=== PATIENT | male | born 1945 | race Caucasian/White ===

== ENCOUNTER 2016-08-31 20:56 | Observation (INO) ==
--- NOTE | 2016-08-31 21:26 | Emergency Department Note ---
Disposition Clinical Impression: Influenza A Dyspnea Qualifiers: Dyspnea type: shortness of breath Qualified Code(s): R06.02 - Shortness of breath Disposition: Admitted As Inpatient Condition: Fair General Adult HPI - General Chief complaint: ED General Medical Stated complaint: Flu-like symptoms Nursing Notes Reviewed: Yes Vital Signs Reviewed: Yes - History of Present Illness HPI Narrative: 3 week history of cough and shortness of breath and flu like illness. Daughter states his illnesses has been present About 1 week and she states he has congestive heart failure ,COPD and heart disease. Onset (ago): week(s) Pain Scale: 0 - Related Data Home Medications Medication Instructions Recorded Confirmed Unable To Obtain [Unable to Obtain] 08/31/16 08/31/16 Allergies Allergy/AdvReac Type Severity Reaction Status Date / Time No Known Allergies Allergy Verified 08/31/16 21:00 All systems ED: reviewed and negative except as stated. Physical Exam - General Limitations: no limitations General appearance: alert, in no apparent distress - Head Head exam: atraumatic - Eye Eye exam: Present: normal appearance - ENT ENT exam: normal exam - Neck Neck exam: Present: normal inspection - Chest Chest inspection: Present: normal inspection - Respiratory Respiratory exam: Present: wheezes - Cardiovascular Cardiovascular exam: Present: tachycardia - Abdominal Exam Abdominal exam: Present: soft - Extremities Exam Extremities exam: Present: normal inspection - Expanded Lower Extremity Exam Gait: not tested/not observed - Back Exam Back exam: Present: normal inspection - Neurological Exam Neurological exam: Present: alert, oriented X3, CN II-XII intact - Psychiatric Psychiatric exam: Present: normal affect - Skin Skin exam: Present: warm, dry Course Vital Signs Temperature 99.8 F H 08/31/16 21:01 Pulse Rate 120 08/31/16 21:01 Respiratory Rate 24 08/31/16 21:01 Blood Pressure 140/75 08/31/16 21:01 O2 Sat by Pulse Oximetry 86 L 08/31/16 21:01 Temperature 99.8 F H 08/31/16 21:07 Pulse Rate 116 08/31/16 22:19 Respiratory Rate 22 08/31/16 22:42 Blood Pressure 137/73 08/31/16 22:42 O2 Sat by Pulse Oximetry 91 L 08/31/16 22:19 Oxygen Delivery Oxygen Delivery Nasal Cannula Medical Decision Making - [facility] Narrative Medical decision making narrative: Differential: Respiratory failure versus COPD versus pneumonia versus influenza - Lab Data Lab results reviewed: Yes I reviewed the patient's lab results. Result diagrams: 08/31/16 21:31 08/31/16 21:31 Lab Results 08/31/16 08/31/16 08/31/16 Range/Units 21:31 21:31 21:31 WBC 9.2 (4.3-11.1) K/mcL RBC 5.76 H (4.19-5.50) M/mcL Hgb 17.1 H (12.9-16.9) g/dL Hct 49.7 (37.5-50.1) % MCV 86.3 (83.0-100.0) fL MCH 29.7 (28.0-33.3) pg MCHC 34.4 (31.6-35.5) g/dL RDW 12.9 (11.5-14.5) % Plt Count 209 (140-400) K/mcL MPV 10.6 (9.4-12.4) fL Immature Gran % 0.2 (0-4) % Seg Neutrophils % 88.4 % Lymphocytes % 4.3 % Monocytes % 6.4 % Eosinophils % 0.2 % Basophils % 0.5 % Neutrophils # 8.1 (1.6-8.9) K/mcL Lymphocytes # 0.4 L (0.6-4.6) K/mcL Monocytes # 0.6 (0.0-1.3) K/mcL Eosinophils # 0.0 (0.0-0.6) K/mcL Basophils # 0.1 (0.0-0.2) K/mcL PT 12.5 H (9.4-12.1) Seconds INR 1.2 Sodium 135 L (136-145) mEq/L Potassium 4.3 (3.5-4.5) mEq/L Chloride 99 (98-109) mEq/L Carbon Dioxide 24 (19-29) mEq/L BUN 17 (8-26) mg/dL Creatinine 1.13 (0.72-1.25) mg/dL Est GFR ( Amer) > 60 (> 60) Est GFR (Non-Af Amer) > 60 (> 60) BUN/Creatinine Ratio 15 (6-26) Glucose 310 H (70-99) mg/dL Calculated Osmolality 293 (280-300) Calcium 8.9 (8.6-10.8) mg/dL Total Bilirubin 0.5 (0.2-1.2) mg/dL AST 32 (5-34) Units/L ALT 18 (0-55) Units/L Alkaline Phosphatase 97 (38-126) Units/L Troponin I (0-0.03) ng/mL B-Natriuretic Peptide (0-100) pg/mL Serum Total Protein 7.4 (6.0-8.3) g/dL Albumin 3.4 L (3.5-5.0) g/dL Globulin 4.0 H (2.4-3.5) g/dL Albumin/Globulin Ratio 0.9 L (1.1-2.2) 08/31/16 08/31/16 Range/Units 21:31 21:31 WBC (4.3-11.1) K/mcL RBC (4.19-5.50) M/mcL Hgb (12.9-16.9) g/dL Hct (37.5-50.1) % MCV (83.0-100.0) fL MCH (28.0-33.3) pg MCHC (31.6-35.5) g/dL RDW (11.5-14.5) % Plt Count (140-400) K/mcL MPV (9.4-12.4) fL Immature Gran % (0-4) % Seg Neutrophils % % Lymphocytes % % Monocytes % % Eosinophils % % Basophils % % Neutrophils # (1.6-8.9) K/mcL Lymphocytes # (0.6-4.6) K/mcL Monocytes # (0.0-1.3) K/mcL Eosinophils # (0.0-0.6) K/mcL Basophils # (0.0-0.2) K/mcL PT (9.4-12.1) Seconds INR Sodium (136-145) mEq/L Potassium (3.5-4.5) mEq/L Chloride (98-109) mEq/L Carbon Dioxide (19-29) mEq/L BUN (8-26) mg/dL Creatinine (0.72-1.25) mg/dL Est GFR ( Amer) (> 60) Est GFR (Non-Af Amer) (> 60) BUN/Creatinine Ratio (6-26) Glucose (70-99) mg/dL Calculated Osmolality (280-300) Calcium (8.6-10.8) mg/dL Total Bilirubin (0.2-1.2) mg/dL AST (5-34) Units/L ALT (0-55) Units/L Alkaline Phosphatase (38-126) Units/L Troponin I 0.03 (0-0.03) ng/mL B-Natriuretic Peptide 31 (0-100) pg/mL Serum Total Protein (6.0-8.3) g/dL Albumin (3.5-5.0) g/dL Globulin (2.4-3.5) g/dL Albumin/Globulin Ratio (1.1-2.2) - Radiology Data Radiology results reviewed: Yes I reviewed the patient's radiology results. ITS Impressions Chest X-Ray 08/31/16 21:08 IMPRESSION: 1. No focal airspace disease. D/ / Willy Appiah MD / Willy Appiah MD Interpreting Provider: Willy Appiah MD - EKG Data EKG #1 EKG shows normal: sinus rhythm Rate: tachycardia Rhythm: NSR Interpretation: no acute changes
[2016-08-31 21:38] LABS: Basophils # 0.1 K/mcL (0.0-0.2); Basophils % 0.5 %; Eosinophils % 0.2 %; Hematocrit 49.7 % (37.5-50.1); Hemoglobin 17.1 g/dL (12.9-16.9); Immature Granulocytes % 0.2 % (0-4); Lymphocytes # 0.4 K/mcL (0.6-4.6); Lymphocytes % 4.3 %; Mean Corpuscular HGB Conc 34.4 g/dL (31.6-35.5); Mean Corpuscular Hemoglobin 29.7 pg (28.0-33.3); Mean Corpuscular Volume 86.3 fL (83.0-100.0); Mean Platelet Volume 10.6 fL (9.4-12.4); Monocytes # 0.6 K/mcL (0.0-1.3); Monocytes % 6.4 %; Neutrophils # 8.1 K/mcL (1.6-8.9); Platelet Count 209 K/mcL (140-400); Red Blood Count 5.76 M/mcL (4.19-5.50); Red Cell Distribution Width 12.9 % (11.5-14.5); Segmented Neutrophils % 88.4 %
[2016-08-31 21:44] LABS: INR 1.2; Prothrombin Time 12.5 Seconds (9.4-12.1)
[2016-08-31 21:56] LABS: Alanine Aminotransferase 18 Units/L (0-55); Albumin 3.4 g/dL (3.5-5.0); Albumin/Globulin Ratio 0.9 (1.1-2.2); Alkaline Phosphatase 97 Units/L (38-126); Aspartate Amino Transferase 32 Units/L (5-34); BUN/Creatinine Ratio 15 (6-26); Bilirubin,Total 0.5 mg/dL (0.2-1.2); Blood Urea Nitrogen 17 mg/dL (8-26); Calcium 8.9 mg/dL (8.6-10.8); Carbon Dioxide 24 mEq/L (19-29); Chloride 99 mEq/L (98-109); Glucose 310 mg/dL (70-99); Osmolality,Calculated 293 (280-300); Potassium 4.3 mEq/L (3.5-4.5); Sodium 135 mEq/L (136-145); Total Protein 7.4 g/dL (6.0-8.3); eGFR For African Americans > 60 (> 60); eGFR For Non-African Americans > 60 (> 60)
[2016-09-01] MEDS ORDERED: *HR* Dextrose 50 % in Water (Syg) 50 ML SYRINGE IVP PRN (08:38)
[2016-09-01] MEDS ORDERED: D5% in Water 1,000 ML IV PRN (08:38)
[2016-09-01] MEDS ORDERED: Dextrose Gel 15 GM PO PRN ×2 (08:38)
[2016-09-01] MEDS: Insulin LISPRO 300 UNITS/3 ML VIAL SQ SCH ×5 (09:39→22:41)
[2016-09-01] MEDS ORDERED: Insulin Regular, Human 100 UNIT/ML SQ SCH (12:00)
--- NOTE | 2016-09-01 14:18 | Internal Med History&Physical ---
Date of Encounter: 09/01/16 Time of Encounter: 13:45 Assessment and Plan (1) Influenza A Current visit: Yes Status: Acute Continue Tamiflu. Will give IV fluids and Robitussin. (2) Coronary artery disease Current visit: Yes Status: Acute We will start him on aspirin and isosorbide. Qualifiers: Coronary Disease-Associated Artery/Lesion type: [place] artery [place] vs. transplanted heart: [place] heart Associated angina: with stable angina Qualified Code(s): I25.118 - Atherosclerotic heart disease of [place] coronary artery with other forms of angina pectoris (3) Low vitamin D level Current visit: Yes Status: Chronic Vitamin D level was 16 on 06/13/2016. Recheck in a.m. (4) DM type 2 (diabetes mellitus, type 2) Current visit: Yes Status: Chronic We will check hemoglobin A1c in a.m. Do Accu-Cheks with SSI. Qualifiers: Diabetes mellitus complication status: with kidney complications Diabetes mellitus complication detail: with chronic kidney disease Diabetes mellitus assisted insulin use: with assisted use Chronic kidney disease stage: stage 2 (mild) Qualified Code(s): E11.22 - Type 2 diabetes mellitus with diabetic chronic kidney disease; N18.2 - Chronic kidney disease, stage 2 (mild); Z79.4 - care home (current) use of insulin (5) CKD (chronic kidney disease) stage 2, GFR 60-89 ml/min Current visit: Yes Status: Acute Hold losartan and hydrochlorothiazide and give IV fluids and see if renal indices improve Internal Medicine - H&P: HPI Chief complaint: Cough and dyspnea Admitted From: Home Plans for Post Hospital Care: Home History of present illness: Mr. Metcalf is a 70 year old male who came to emergency room complaining of increasing dyspnea over the preceding 3 weeks. Approximately 3 days ago he developed cold diaphoresis and cough occasionally productive of green and white sputum. He felt fevered occasionally. He had an episode of vomiting on August 30. He was evaluated in emergency room and found to have influenza A. He was admitted to [facility] floor for ongoing care needs. His respiratory history is significant for having quit smoking at age 50 after approximately 25 years of up to 2 packs per day. He has a diagnosis of BRE and wears CPAP at bedtime and uses oxygen when necessary. He states he did have a flu shot last fall. Past Med Surg Social Fam HX - Past Medical History Medical history: cancer, COPD, coronary artery disease, CVA, diabetes, hypertension, myocardial infarction, other - Social History Smoking Status: Former smoker Smokeless Tobacco Status: No Alcohol use: none Drug use: none Internal Medicine - H&P: Meds Unable To Obtain [Unable to Obtain] 08/31/16 [History] Allergies No Known Allergies Allergy (Verified 08/31/16 21:00) All Systems PM: A 10-system review of systems was performed and is negative for pertinent findings except as documented above in the HPI. Review of systems: Gen.: His weight has been stable past few months Cardiovascular: He has a history of hypertension. He reports having a myocardial infarction approximately 1996 followed by attempted EST which he was unable to perform. He had a heart catheterization 10/19/2010 showed 50% stenosis in the mid to distal LAD, 70% stenosis in the proximal first diagonal, 70% stenosis in the proximal to mid first OMB, 60-70% stenosis in the distal RCA , and normal LVEF of 55%. He states he was transferred to [facility] following heart catheter but denies any stents or surgical recommendation. He does get chest pain predictably on exertion. He denies DVT or pulmonary embolus. Respiratory: As per history of present illness GI: Denies disorders of his liver gallbladder or exocrine pancreas : He was told in the past he had chronic kidney disease. 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 He denies disorders of his bladder or prostate Neurologic: He claims he had a stroke in 1996 but no permanent deficit resulted. He denies seizures. Endocrine: He was diagnosed with DM 2 approximately 1989. His most recent hemoglobin A1c was 7.4% on 05/21/2016. He denies hyperlipidemia or thyroid disease. Hematology/oncology: He has had skin cancer denies internal malignancies or anemia. Psychiatric: He has anger and anxiety at times but denies depression or other mental health issues Musk skeletal: He has DJD but denies gout or other bone joint or muscle disorders. - Constitutional Vitals: Temp Pulse Resp BP Pulse Ox 98.1 F 72 16 134/61 96 09/01/16 10:32 09/01/16 10:32 09/01/16 10:32 09/01/16 10:32 09/01/16 10:32 Exam: Gen.: He is a well-developed overweight male who appears in [id number] respiratory distress sitting in a chair HEENT: Head is atraumatic and normocephalic. He has multiple lesions on his frontal and mid scalp that appear to be confluence of healing ulcers with possible recurrent skin cancer that has been previously removed. Eyes: EOMI. There is no scleral icterus. Mouth: Mucosa is moist. Neck: Supple and nontender. There is no thyromegaly or adenopathy noted. Heart: Regular without murmurs gallops or ectopics. Tones are difficult to hear Lungs: He has a few scattered rhonchi. No inspiratory crackles or wheezing heard Abdomen: Soft and nontender. Exam is limited because he is in the seated position. Extremities: He has DJD changes of his hands. Has multiple warts on his lower legs more on the left than the right. Dorsalis pedis and posttibial pulses are nonpalpable. The left foot is slightly cool to touch compared to the right. Has some dependent rubor in the left foot Neurologic: Mental status: He is talkative and seems to be a good historian overall. Cranial nerves: Smile is symmetric. Forehead wrinkles bilaterally. Tongue protrudes midline. EOMI. Motor: There is no pronator drift. Cerebellar : Finger to nose is intact bilaterally. Skin: Warm and dry Internal Med - H&P Results - Labs CBC & Chem 7: 08/31/16 21:31 08/31/16 21:31
[2016-09-01] MEDS: Isosorbide MONOnitrate (24 HR) 30 MG TAB.ER.24H PO SCH (18:00)
[2016-09-01] MEDS: Aspirin 81 MG TAB.CHEW PO SCH (18:00)
[2016-09-01] MEDS: Insulin DETEMIR 100 UNIT/ML X5UNITS SQ SCH (22:40)
[2016-09-01 22:48] LABS: Bilirubin,Urine Small (Negative); Blood,Urine Small (Negative); Clarity,Urine Clear (Clear); Color,Urine Yellow (Yellow); Glucose,Urine (UA) 250 mg/dL (Normal); Ketones,Urine Trace mg/dL (Negative); Leukocyte Esterase,Urine Negative (Negative); Nitrite,Urine Negative (Negative); Protein,Urine 100 mg/dL (Neg-Trace); Specific Gravity,Urine 1.025 (1.010-1.025)
[2016-09-01 23:08] LABS: Bacteria,Urine Moderate per hpf (None-Few); Mucus,Urine Moderate (Few); Squamous Epithelial Cell,Urine Few per lpf (None-Few)
[2016-09-01 23:09] LABS: Hyaline Casts,Urine Few per lpf (None-Few)
[2016-09-01 23:10] LABS: Granular Casts,Urine Few per lpf (None Seen); RBC,Urine 0-3 per hpf (0-3); WBC,Urine 0-3 per hpf (0-3)
[2016-09-02 05:20] LABS: Basophils % 0.3 %; Eosinophils % 0.1 %; Hematocrit 45.7 % (37.5-50.1); Hemoglobin 15.7 g/dL (12.9-16.9); Immature Granulocytes % 0.4 % (0-4); Lymphocytes # 1.5 K/mcL (0.6-4.6); Lymphocytes % 16.1 %; Mean Corpuscular HGB Conc 34.4 g/dL (31.6-35.5); Mean Corpuscular Hemoglobin 29.6 pg (28.0-33.3); Mean Corpuscular Volume 86.1 fL (83.0-100.0); Mean Platelet Volume 10.8 fL (9.4-12.4); Monocytes # 0.9 K/mcL (0.0-1.3); Monocytes % 9.8 %; Neutrophils # 6.9 K/mcL (1.6-8.9); Platelet Count 205 K/mcL (140-400); Red Blood Count 5.31 M/mcL (4.19-5.50); Red Cell Distribution Width 12.8 % (11.5-14.5); Segmented Neutrophils % 73.3 %
[2016-09-02 05:38] LABS: BUN/Creatinine Ratio 20 (6-26); Blood Urea Nitrogen 19 mg/dL (8-26); Calcium 9.2 mg/dL (8.6-10.8); Carbon Dioxide 25 mEq/L (19-29); Chloride 98 mEq/L (98-109); Glucose 123 mg/dL (70-99); Magnesium 1.9 mg/dL (1.6-2.6); Osmolality,Calculated 286 (280-300); Potassium 3.7 mEq/L (3.5-4.5); Sodium 136 mEq/L (136-145); eGFR For African Americans > 60 (> 60); eGFR For Non-African Americans > 60 (> 60)
[2016-09-02] MEDS: Isosorbide MONOnitrate (24 HR) 30 MG TAB.ER.24H PO SCH (08:27)
[2016-09-02] MEDS: Aspirin 81 MG TAB.CHEW PO SCH (08:28)
[2016-09-02] MEDS: Insulin LISPRO 300 UNITS/3 ML VIAL SQ SCH ×7 (08:29→20:44)
--- NOTE | 2016-09-02 10:14 | Internal Med Progress Note ---
Date of Encounter: 09/02/16 Time of Encounter: 10:05 - Assessment and plan (1) Influenza A Current Visit: Yes Status: Acute Assessment and plan: September 02. Continue Tamiflu and supportive care (2) Coronary artery disease Current Visit: Yes Status: Acute Assessment and plan: Continue aspirin and Imdur Qualifiers: Coronary Disease-Associated Artery/Lesion type: [place] artery [place] vs. transplanted heart: [place] heart Associated angina: with stable angina Qualified Code(s): I25.118 - Atherosclerotic heart disease of [place] coronary artery with other forms of angina pectoris (3) Low vitamin D level Current Visit: Yes Status: Chronic Assessment and plan: September 02. Vitamin D level is pending (4) DM type 2 (diabetes mellitus, type 2) Current Visit: Yes Status: Chronic Assessment and plan: September 02. Hemoglobin A1c is pending. Continue Accu-Cheks with SSI Qualifiers: Diabetes mellitus complication status: with kidney complications Diabetes mellitus complication detail: with chronic kidney disease Diabetes mellitus skilled nursing insulin use: with extermination supervisor use Chronic kidney disease stage: stage 2 (mild) Qualified Code(s): E11.22 - Type 2 diabetes mellitus with diabetic chronic kidney disease; N18.2 - Chronic kidney disease, stage 2 (mild); Z79.4 - residential (current) use of insulin (5) CKD (chronic kidney disease) stage 2, GFR 60-89 ml/min Current Visit: Yes Status: Acute Assessment and plan: September 02. Azotemia has resolved with creatinine now 0.97 and estimated GFR greater than 60. Continue to hold HCTZ and losartan - Subjective Interval history: September 02. He has no new complaints but still feels dyspneic. - Constitutional Vitals: Temp Pulse Resp BP Pulse Ox 97.7 F 94 18 138/79 94 L 09/02/16 07:50 09/02/16 07:50 09/02/16 07:50 09/02/16 07:50 09/02/16 07:50 Exam: He has audible rhonchi heard without use of stethoscope. He is dyspneic in attempting to speak. I reviewed his medications and lab results. Internal Medicine: Result - Labs CBC & Chem 7: 09/02/16 04:53 09/02/16 04:53 Labs: Short CBC 09/02/16 Range/Units 04:53 WBC 9.4 (4.3-11.1) K/mcL Hgb 15.7 (12.9-16.9) g/dL Hct 45.7 (37.5-50.1) % Plt Count 205 (140-400) K/mcL Neutrophils # 6.9 (1.6-8.9) K/mcL BMP 09/02/16 04:53 Sodium 136 Potassium 3.7 Chloride 98 Carbon Dioxide 25 BUN 19 Creatinine 0.97 Glucose 123 H Calcium 9.2 Urine 09/01/16 Range/Units 22:36 Urine Color Yellow (Yellow) Urine Clarity Clear (Clear) Urine pH 6.0 (5.0-8.0) pH Units Ur Specific [place] 1.025 (1.010-1.025) Urine Protein 100 H (Neg-Trace) mg/dL Urine Glucose (UA) 250 H (Normal) mg/dL - ABG Interpretation ABG results: PT/INR, D-dimer PT 12.5 Seconds (9.4-12.1) H 08/31/16 21:31 Consult Discharge Plan - Plan Referrals: Jennifer Acosta, TI[employer] MOLDER [Primary Care Provider] - 1 week
--- NOTE | 2016-09-02 13:37 | Electrocardiograph Report ---
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
[2016-09-02 17:37] LABS: Hemoglobin A1C 8.1 %
[2016-09-02] MEDS: Insulin DETEMIR 100 UNIT/ML X5UNITS SQ SCH (20:43)
[2016-09-03] MEDS: Insulin LISPRO 300 UNITS/3 ML VIAL SQ SCH ×7 (09:09→22:14)
[2016-09-03] MEDS: Isosorbide MONOnitrate (24 HR) 30 MG TAB.ER.24H PO SCH (09:18)
[2016-09-03] MEDS: Aspirin 81 MG TAB.CHEW PO SCH (09:18)
--- NOTE | 2016-09-03 10:10 | Discharge Summary ---
Date of Encounter: 09/03/16 Time of Encounter: 09:55 - Discharge Diagnosis (1) Influenza A Priority: Primary Status: Acute (2) Coronary artery disease Priority: Secondary Status: Acute Qualifiers: Coronary Disease-Associated Artery/Lesion type: [place] artery [place] vs. transplanted heart: [place] heart Associated angina: with stable angina Qualified Code(s): I25.118 - Atherosclerotic heart disease of [place] coronary artery with other forms of angina pectoris (3) Low vitamin D level Priority: Secondary Status: Chronic (4) DM type 2 (diabetes mellitus, type 2) Priority: Secondary Status: Chronic Qualifiers: Diabetes mellitus complication status: with kidney complications Diabetes mellitus complication detail: with chronic kidney disease Diabetes mellitus director nicu insulin use: with director nicu use Chronic kidney disease stage: stage 2 (mild) Qualified Code(s): E11.22 - Type 2 diabetes mellitus with diabetic chronic kidney disease; N18.2 - Chronic kidney disease, stage 2 (mild); 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.4 - district court judge (current) use of insulin (5) CKD (chronic kidney disease) stage 2, GFR 60-89 ml/min Priority: Secondary Status: Chronic - Discharge Medications Prescriptions: Isosorbide MONOnitrate (24 HR) [Imdur] 30 mg PO DAILY #30 tab.er.24h Oseltamivir [Tamiflu] 75 mg PO BID #6 capsule Home Medications: Aspirin 81 mg PO DAILY tab.chew 09/03/16 [Rx] Isosorbide MONOnitrate (24 HR) [Imdur] 30 mg PO DAILY #30 tab.er.24h 09/03/16 [ Rx] Oseltamivir [Tamiflu] 75 mg PO BID #6 capsule 09/03/16 [Rx] Allergies/Adverse Reactions: Allergies No Known Allergies Allergy (Verified 08/31/16 21:00) Date of admission: 08/31/16 22:32 Primary care physician: Jennifer Acosta CNP Consults: 08/31/16 23:58 Consult to [place] [CONS] Routine Reason for SW Consult: Patient unable to care for self when is admitted into hospital - Patient Status Disposition: Home, Self-Care Condition: Fair Overall status at discharge: patient is progressing back to baseline - Discharge Instructions Follow Up With: Jennifer Acosta CNP [Primary Care Provider] - 1 week - Diet and Activity Activity: resume usual activities as tolerated, wear oxygen at all times Diet: diabetic diet Hospital course: Mr. Metcalf is a 70 year old male who came to emergency room complaining of increasing dyspnea over the preceding 3 weeks. Approximately 3 days ago he developed cold diaphoresis and cough occasionally productive of green and white sputum. He felt fevered occasionally. He had an episode of vomiting on August 30. He was evaluated in emergency room and found to have influenza A. He was admitted to [facility] floor for ongoing care needs. Initial orders were written by the emergency room physician. I him on September 01 and performed history and physical. He was started on Tamiflu and given IV fluids and Robitussin-DM. He remained afebrile after the first hospital day. He will continue Tamiflu for 3 additional days after discharge. He can also use OTC Robitussin. He has supplemental oxygen available at home. He was started on aspirin and Imdur for complaints of occasional chest pain at home. These will be continued at discharge also. A vitamin D level on 06/13/2016 was noted to be low at 16. Repeat level was ordered with results pending at time of this dictation. Hemoglobin A1c returned slightly elevated at 8.1%. His PCP Jennifer Acosta CNP can further address this. On September 03 I felt he was stable for discharge home. He was instructed to follow with Jennifer Acosta CNP within 1 week - Time Spent with Patient Total time spent providing and/or coordinating discharge services: - Constitutional Vitals: Temp Pulse Resp BP Pulse Ox 96.6 F L 94 20 142/79 93 L 09/03/16 09:14 09/03/16 09:14 09/03/16 09:14 09/03/16 09:14 09/03/16 09:29
[2016-09-03] MEDS: Insulin DETEMIR 100 UNIT/ML X5UNITS SQ SCH (22:14)
[2016-09-04] MEDS: Insulin LISPRO 300 UNITS/3 ML VIAL SQ SCH ×7 (07:32→21:57)
[2016-09-04] MEDS: Isosorbide MONOnitrate (24 HR) 30 MG TAB.ER.24H PO SCH (10:38)
[2016-09-04] MEDS: Aspirin 81 MG TAB.CHEW PO SCH (10:38)
--- NOTE | 2016-09-04 12:24 | Internal Med Progress Note ---
Date of Encounter: 09/04/16 Time of Encounter: 12:15 - Assessment and plan (1) Influenza A Current Visit: Yes Status: Acute Assessment and plan: September 02. Continue Tamiflu and supportive care September 04. Continue Tamiflu. We will check chest x-ray (2) Coronary artery disease Current Visit: Yes Status: Acute Assessment and plan: September 02. Continue aspirin and Imdur September 04. Stable Qualifiers: Coronary Disease-Associated Artery/Lesion type: [place] artery [place] vs. transplanted heart: [place] heart Associated angina: with stable angina Qualified Code(s): I25.118 - Atherosclerotic heart disease of [place] coronary artery with other forms of angina pectoris (3) Low vitamin D level Current Visit: Yes Status: Chronic Assessment and plan: September 02. Vitamin D level is pending September 04. Vitamin D level returned low at 10. Will start vitamin D supplementation (4) DM type 2 (diabetes mellitus, type 2) Current Visit: Yes Status: Chronic Assessment and plan: September 02. Hemoglobin A1c is pending. Continue Accu-Cheks with SSI September 04. Hemoglobin A1c was 8.1%. Blood sugars are generally well controlled. 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 Azotemia has resolved with creatinine now 0.97 and estimated GFR greater than 60. Continue to hold HCTZ and losartan - Subjective Interval history: September 02. He has no new complaints but still feels dyspneic. September 04. His discharge was canceled yesterday after he and family agreed he was still too dyspneic to return home. He continued treatment regiment uninterrupted. He feels he is slightly improved today but reports he is coughing up green sputum. - Constitutional Vitals: Temp Pulse Resp BP Pulse Ox 97.9 F 75 20 139/75 95 09/04/16 10:15 09/04/16 10:23 09/04/16 10:23 09/04/16 10:23 09/04/16 10:43 Exam: He is sitting on the side of the bed and still appears dyspneic. He has audible secretion and slight wheezing without the use of stethoscope. His extremities show no pitting edema of the ankles. I reviewed his medications and lab results. Internal Medicine: Result - Labs CBC & Chem 7: 09/02/16 04:53 09/02/16 04:53 - ABG Interpretation ABG results: PT/INR, D-dimer PT 12.5 Seconds (9.4-12.1) H 08/31/16 21:31 Consult Discharge Plan - Plan Referrals: Jennifer Acosta, [employer] [Primary Care Provider] - 1 week Prescriptions: Isosorbide MONOnitrate (24 HR) [Imdur] 30 mg PO DAILY #30 tab.er.24h Oseltamivir [Tamiflu] 75 mg PO BID #6 capsule
[2016-09-04] MEDS: Cholecalciferol (D-3) 1,000 UNIT TABLET PO SCH (12:37)
[2016-09-04] MEDS: Insulin DETEMIR 100 UNIT/ML X5UNITS SQ SCH (21:57)
[2016-09-05 07:44] LABS: Basophils # 0.1 K/mcL (0.0-0.2); Basophils % 0.7 %; Eosinophils # 0.1 K/mcL (0.0-0.6); Eosinophils % 1.8 %; Hematocrit 45.3 % (37.5-50.1); Hemoglobin 15.5 g/dL (12.9-16.9); Immature Granulocytes % 0.7 % (0-4); Lymphocytes # 1.5 K/mcL (0.6-4.6); Lymphocytes % 19.7 %; Mean Corpuscular HGB Conc 34.2 g/dL (31.6-35.5); Mean Corpuscular Hemoglobin 29.5 pg (28.0-33.3); Mean Corpuscular Volume 86.1 fL (83.0-100.0); Mean Platelet Volume 10.9 fL (9.4-12.4); Monocytes # 0.7 K/mcL (0.0-1.3); Monocytes % 9.4 %; Neutrophils # 5.2 K/mcL (1.6-8.9); Platelet Count 279 K/mcL (140-400); Red Blood Count 5.26 M/mcL (4.19-5.50); Red Cell Distribution Width 12.8 % (11.5-14.5); Segmented Neutrophils % 67.7 %
[2016-09-05] MEDS: Aspirin 81 MG TAB.CHEW PO SCH (08:57)
[2016-09-05] MEDS: Cholecalciferol (D-3) 1,000 UNIT TABLET PO SCH (08:58)
[2016-09-05] MEDS: Isosorbide MONOnitrate (24 HR) 30 MG TAB.ER.24H PO SCH (08:59)
[2016-09-05] MEDS: Insulin LISPRO 300 UNITS/3 ML VIAL SQ SCH ×7 (09:02→19:49)
[2016-09-05 09:05] LABS: BUN/Creatinine Ratio 14 (6-26); Blood Urea Nitrogen 12 mg/dL (8-26); Carbon Dioxide 28 mEq/L (19-29); Chloride 100 mEq/L (98-109); Glucose 191 mg/dL (70-99); Osmolality,Calculated 291 (280-300); Sodium 138 mEq/L (136-145); eGFR For African Americans > 60 (> 60); eGFR For Non-African Americans > 60 (> 60)
--- NOTE | 2016-09-05 14:13 | Internal Med Progress Note ---
Date of Encounter: 09/05/16 Time of Encounter: 14:05 - Assessment and plan (1) Influenza A Current Visit: Yes Status: Acute Assessment and plan: September 02. Continue Tamiflu and supportive care September 04. Continue Tamiflu. We will check chest x-ray September 05. Chest x-ray was unremarkable. Continue Tamiflu (2) Coronary artery disease Current Visit: Yes Status: Acute Assessment and plan: September 02. Continue aspirin and Imdur September 04. Stable Qualifiers: Coronary Disease-Associated Artery/Lesion type: [place] artery [place] vs. transplanted heart: [place] heart Associated angina: with stable angina Qualified Code(s): I25.118 - Atherosclerotic heart disease of [place] coronary artery with other forms of angina pectoris (3) Low vitamin D level Current Visit: Yes Status: Chronic Assessment and plan: September 02. Vitamin D level is pending September 04. Vitamin D level returned low at 10. Will start vitamin D supplementation September 05. Continue vitamin D supplement (4) DM type 2 (diabetes mellitus, type 2) Current Visit: Yes Status: Chronic Assessment and plan: September 02. Hemoglobin A1c is pending. Continue Accu-Cheks with SSI September 04. Hemoglobin A1c was 8.1%. Blood sugars are generally well controlled. Continue present regimen September 05. 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 Azotemia has resolved with creatinine now 0.97 and estimated GFR greater than 60. Continue to hold HCTZ and losartan - Subjective Interval history: September 02. He has no new complaints but still feels dyspneic. September 04. His discharge was canceled yesterday after he and family agreed he was still too dyspneic to return home. He continued treatment regiment uninterrupted. He feels he is slightly improved today but reports he is coughing up green sputum. September 05. He feels significantly improved - Constitutional Vitals: Temp Pulse Resp BP Pulse Ox 97.9 F 93 20 127/74 93 L 09/05/16 13:00 09/05/16 13:00 09/05/16 13:00 09/05/16 13:00 09/05/16 13:00 Exam: He is sitting on the side of bed and appears much more comfortable. No audible wheezing or rhonchi are heard at bedside. His affect is bright and cheerful. His oxygen saturation was 95-96%. I reviewed his medications and lab results. Internal Medicine: Result - Labs CBC & Chem 7: 09/05/16 06:55 09/05/16 06:55 Labs: Short CBC 09/05/16 Range/Units 06:55 WBC 7.7 (4.3-11.1) K/mcL Hgb 15.5 (12.9-16.9) g/dL Hct 45.3 (37.5-50.1) % Plt Count 279 (140-400) K/mcL Neutrophils # 5.2 (1.6-8.9) K/mcL BMP 09/05/16 06:55 Sodium 138 Potassium 4.0 Chloride 100 Carbon Dioxide 28 BUN 12 Creatinine 0.86 Glucose 191 H Calcium 9.0 - ABG Interpretation ABG results: PT/INR, D-dimer PT 12.5 Seconds (9.4-12.1) H 08/31/16 21:31 Consult Discharge Plan - Plan Referrals: Jennifer Acosta, ENVIRONMENTAL DEPARTMENT MANAGER [Primary Care Provider] - 1 week Prescriptions: Isosorbide MONOnitrate (24 HR) [Imdur] 30 mg PO DAILY #30 tab.er.24h Oseltamivir [Tamiflu] 75 mg PO BID #6 capsule
[2016-09-05] MEDS: Insulin DETEMIR 100 UNIT/ML X5UNITS SQ SCH (19:49)
[2016-09-06] MEDS: Aspirin 81 MG TAB.CHEW PO SCH (08:22)
[2016-09-06] MEDS: Insulin LISPRO 300 UNITS/3 ML VIAL SQ SCH ×7 (08:22→21:10)
[2016-09-06] MEDS: Cholecalciferol (D-3) 1,000 UNIT TABLET PO SCH (08:22)
[2016-09-06] MEDS: Isosorbide MONOnitrate (24 HR) 30 MG TAB.ER.24H PO SCH (08:22)
--- NOTE | 2016-09-06 10:15 | Internal Med Progress Note ---
Date of Encounter: 09/06/16 Time of Encounter: 10:05 - Assessment and plan (1) Influenza A Current Visit: Yes Status: Acute Assessment and plan: September 02. Continue Tamiflu and supportive care September 04. Continue Tamiflu. We will check chest x-ray September 05. Chest x-ray was unremarkable. Continue Tamiflu (2) Coronary artery disease Current Visit: Yes Status: Acute Assessment and plan: September 02. Continue aspirin and Imdur September 04. Stable Qualifiers: Coronary Disease-Associated Artery/Lesion type: [place] artery [place] vs. transplanted heart: [place] heart Associated angina: with stable angina Qualified Code(s): I25.118 - Atherosclerotic heart disease of [place] coronary artery with other forms of angina pectoris (3) Low vitamin D level Current Visit: Yes Status: Chronic Assessment and plan: September 02. Vitamin D level is pending September 04. Vitamin D level returned low at 10. Will start vitamin D supplementation September 05. Continue vitamin D supplement (4) DM type 2 (diabetes mellitus, type 2) Current Visit: Yes Status: Chronic Assessment and plan: September 02. Hemoglobin A1c is pending. Continue Accu-Cheks with SSI September 04. Hemoglobin A1c was 8.1%. Blood sugars are generally well controlled. Continue present regimen September 05. Continue Levemir and Accu-Cheks with SSI September 06. Blood sugars are slightly above desirable level. Will increase Levemir to 30 units daily at bedtime and continue Glucophage. 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 Azotemia has resolved with creatinine now 0.97 and estimated GFR greater than 60. Continue to hold HCTZ and losartan September 06. Creatinine was further decreased to 0.86 yesterday. Continue present management - Subjective Interval history: September 02. He has no new complaints but still feels dyspneic. September 04. His discharge was canceled yesterday after he and family agreed he was still too dyspneic to return home. He continued treatment regiment uninterrupted. He feels he is slightly improved today but reports he is coughing up green sputum. September 05. He feels significantly improved September 06. He feels more dyspneic today. He does not feel he is ready for discharge. Insurance approval for swing bed/SNF is pending - Constitutional Vitals: Temp Pulse Resp BP Pulse Ox 96.8 F L 88 20 136/83 96 09/06/16 06:21 09/06/16 06:21 09/06/16 06:21 09/06/16 06:21 09/06/16 08:37 Exam: He is sitting in a chair participating in therapy. His lungs show few scattered rhonchi. He does appear more dyspneic than yesterday. I reviewed his medications and lab results. Internal Medicine: Result - Labs CBC & Chem 7: 09/05/16 06:55 09/05/16 06:55 - ABG Interpretation ABG results: PT/INR, D-dimer PT 12.5 Seconds (9.4-12.1) H 08/31/16 21:31 Consult Discharge Plan - Plan Referrals: Jennifer Acosta, HEAD GOLF PROFESSIONAL [Primary Care Provider] - 1 week Prescriptions: Isosorbide MONOnitrate (24 HR) [Imdur] 30 mg PO DAILY #30 tab.er.24h Oseltamivir [Tamiflu] 75 mg PO BID #6 capsule
[2016-09-06] MEDS: Insulin DETEMIR 100 UNIT/ML X5UNITS SQ SCH (21:10)
[2016-09-07] MEDS: Cholecalciferol (D-3) 1,000 UNIT TABLET PO SCH (08:46)
[2016-09-07] MEDS: Isosorbide MONOnitrate (24 HR) 30 MG TAB.ER.24H PO SCH (08:46)
[2016-09-07] MEDS: Aspirin 81 MG TAB.CHEW PO SCH (08:46)
[2016-09-07] MEDS: Insulin LISPRO 300 UNITS/3 ML VIAL SQ SCH ×6 (08:47→18:19)
[2016-09-07 12:36] VITALS: BP 150/70
--- NOTE | 2016-09-07 14:42 | Discharge Summary ---
Date of Encounter: 09/07/16 Time of Encounter: 14:30 - Discharge Diagnosis (1) Influenza A Priority: Primary Status: Acute (2) Coronary artery disease Priority: Secondary Status: Chronic Qualifiers: Coronary Disease-Associated Artery/Lesion type: [place] artery [place] vs. 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 Chronic kidney disease stage: stage 2 (mild) Qualified Code(s): E11.22 - Type 2 diabetes mellitus with diabetic chronic kidney disease; N18.2 - Chronic kidney disease, stage 2 (mild); Z79.4 - half-way (current) use of insulin (5) CKD (chronic kidney disease) stage 2, GFR 60-89 ml/min Priority: Secondary Status: Chronic - Discharge Medications Prescriptions: Cholecalciferol (D-3) [Vitamin D] 2,000 unit PO DAILY #60 tablet Isosorbide MONOnitrate (24 HR) [Imdur] 30 mg PO DAILY #30 tab.er.24h Home Medications: Amitriptyline [Elavil] 25 mg PO DAILY 09/03/16 [History] Aspirin 81 mg PO DAILY tab.chew 09/03/16 [Rx] Atorvastatin [Lipitor] 10 mg PO DAILY 09/03/16 [History] Citalopram [CeleXA] 20 mg PO DAILY 09/03/16 [History] Gemfibrozil [Lopid] 600 mg PO BIDWM 09/03/16 [History] Insulin ASPART [Novolog Flexpen] 25 unit SQ TIDWM 09/03/16 [History] Insulin Glargine [Lantus] 60 unit SQ DAILY 09/03/16 [History] Isosorbide MONOnitrate (24 HR) [Imdur] 30 mg PO DAILY #30 tab.er.24h 09/03/16 [ Rx] Metformin [Glucophage] 1,000 mg PO BIDWM 09/03/16 [History] Metoprolol [Lopressor] 25 mg PO DAILY 09/03/16 [History] Nitroglycerin [Nitrostat] 0.4 mg SL PRN PRN 09/03/16 [History] Ranitidine HCl [Zantac] 300 mg PO DAILY 09/03/16 [History] Cholecalciferol (D-3) [Vitamin D] 2,000 unit PO DAILY #60 tablet 09/07/16 [Rx] Allergies/Adverse Reactions: Allergies No Known Allergies Allergy (Verified 08/31/16 21:00) Date of admission: 08/31/16 22:32 Primary care physician: Jennifer Acosta CNP Consults: 08/31/16 23:58 Consult to Senior Salesforce Developer [CONS] Routine Reason for SW Consult: Patient unable to care for self when is admitted into hospital 09/03/16 12:00 Consult to Occupational Therapy [CONS] Routine Comment: Evaluate, develop and implement POC Consult to Physical Therapy [CONS] Routine Comment: Evaluate, develop and implement POC - Patient Status Disposition: Home, Self-Care Condition: Fair Overall status at discharge: patient is progressing back to baseline - Discharge Instructions Follow Up With: Jennifer Acosta CNP [Primary Care Provider] - 1 week - Diet and Activity Activity: resume usual activities as tolerated, wear oxygen at all times Diet: advance to your usual diet Hospital course: Mr. Metclaf is a 70 year old male who came to emergency room complaining of increasing dyspnea over the preceding 3 weeks. Approximately 3 days ago he developed cold diaphoresis and cough occasionally productive of green and white sputum. He felt fevered occasionally. He had an episode of vomiting on August 30. He was evaluated in emergency room and found to have influenza A. He was admitted to [facility] for ongoing care needs. Initial orders were written by the emergency room physician. I saw him on September 01 and performed the history and physical. He was started on Tamiflu and given IV fluids. He remained afebrile during his hospital stay. His dyspnea gradually lessened. He was able to walk a satisfactory distance in the hallway with therapists. He reported he had oxygen at home for prn use. He will be discharged home and instructed to follow with his PCP within one week. He was started on isosorbide and low-dose aspirin. He had no complaints of chest pain on ambulation. These medications will be continued at discharge. His vitamin D level returned low at 10. He was started on vitamin D 2000 international units daily. This will be continued at discharge. Hemoglobin A1c returned slightly above desirable at 8.1%. His Levemir dose can be adjusted by his PCP. He will continue Glucophage also. He was taken off HCTZ and losartan at time of admission. His azotemia resolved with creatinine decreasing to 0.86 and estimated GFR rising greater than 60 by the day prior to discharge. He will remain off HCTZ and losartan at discharge. His blood pressure remained satisfactory off these. He initially requested insurance consideration for swing bed. His request was denied by insurance. On June 07 he felt stable for discharge home. - Time Spent with Patient Total time spent providing and/or coordinating discharge services: - Constitutional Vitals: Temp Pulse Resp BP Pulse Ox 97.0 F L 90 18 150/70 93 L 09/07/16 12:31 09/07/16 12:31 09/07/16 12:31 09/07/16 12:31 09/07/16 12:31
--- NOTE | 2016-09-07 15:25 | Physician Discharge Referral ---
Home Health/Hosp Referral Info Transfer to: Home Health Attending Provider: Roderick Provider in Charge Post Discharge: PCP (Jennifer Acosta CNP) - Diagnosis (1) Influenza A Priority: Primary Status: Acute (2) Coronary artery disease Priority: Secondary Status: Chronic (3) Low vitamin D level Priority: Secondary Status: Chronic (4) DM type 2 (diabetes mellitus, type 2) Priority: Secondary Status: Chronic (5) CKD (chronic kidney disease) stage 2, GFR 60-89 ml/min Priority: Secondary Status: Chronic - Respiratory Orders Oxygen / L per min (2 L/m by nasal cannula when necessary to keep sat greater than 90%.) Smoking Cessation: Smoking cessation has been advised. For more information, call the [place] Tobacco Quit Line at 1-665-FNCD-NOW. - Diet/Nutrition Diet/Nutrition Orders: No Added Salt ([place]), No Concentrated Sweets - Activity Activity Orders: Walker - Services Needed Following services are medically necessary services: Nursing, Home Health Aide, Physical Therapy, Occupational Therapy - Transfer Medications Prescriptions: Cholecalciferol (D-3) [Vitamin D] 2,000 unit PO DAILY #60 tablet Isosorbide MONOnitrate (24 HR) [Imdur] 30 mg PO DAILY #30 tab.er.24h Home Medications: Amitriptyline [Elavil] 25 mg PO DAILY 09/03/16 [History] Aspirin 81 mg PO DAILY tab.chew 09/03/16 [Rx] Atorvastatin [Lipitor] 10 mg PO DAILY 09/03/16 [History] Citalopram [CeleXA] 20 mg PO DAILY 09/03/16 [History] Gemfibrozil [Lopid] 600 mg PO BIDWM 09/03/16 [History] Insulin ASPART [Novolog Flexpen] 25 unit SQ TIDWM 09/03/16 [History] Insulin Glargine [Lantus] 60 unit SQ DAILY 09/03/16 [History] Isosorbide MONOnitrate (24 HR) [Imdur] 30 mg PO DAILY #30 tab.er.24h 09/03/16 [ Rx] Metformin [Glucophage] 1,000 mg PO BIDWM 09/03/16 [History] Metoprolol [Lopressor] 25 mg PO DAILY 09/03/16 [History] Nitroglycerin [Nitrostat] 0.4 mg SL PRN PRN 02/13/17 [History] Ranitidine HCl [Zantac] 300 mg PO DAILY 09/03/16 [History] Cholecalciferol (D-3) [Vitamin D] 2,000 unit PO DAILY #60 tablet 09/07/16 [Rx] Allergies/Adverse Reactions: Allergies No Known Allergies Allergy (Verified 08/31/16 21:00) Certification: Further, I certify that my clinical findings support that this patient is homebound (i.e. absences from home require considerable and taxing effort and are for medical reasons or mu-ism services or infrequently or short duration when for other reasons) because: Homebound Reason: Leaving home requires considerable and taxing effort due to condition (Dyspnea on exertion, deconditioning, ASHD / angina) Attestation: My signature below is to certify that this patient is under my care and that I, or nurse practitioner, or a physician's assistant professor of german working with me, has a face-to -face encounter with this patient.
== END 2016-09-07 18:50 | disposition home or self-care (01) ==
LOC: EMEROOPIK 20:56 → INPPIK 20:56
PROVIDERS: ADMIT Internal Medicine; ATTEND Internal Medicine